=== PATIENT | male | born 1945 | race Caucasian/White ===

== ENCOUNTER 2018-12-08 11:55 | Emergency (ER) | payer OTHER ==
[2018-12-08 12:06] VITALS: BP 149/85; PULSE 79; TEMP 98.1; BMI 31.1
[2018-12-08] MEDS ORDERED: DIPHTH,PERTUSS(ACELL),TET 0.5 ML DISP.SYRIN IM ONE ×2 (12:33→12:37)
--- NOTE | 2018-12-08 12:37 | PDOC ---
History of Present Illness - General Chief Complaint: Laceration Stated Complaint: RT KNEE INJURY Time Seen by Provider: 12/08/18 12:12 History Source: Patient - History of Present Illness Timing/Duration: reports: just prior to arrival Location: reports: extremities Past History - Past Medical History Allergies/Adverse Reactions: Allergies Allergy/AdvReac Type Severity Reaction Status Date / Time No Known Allergies Allergy Verified 12/08/18 12:04 Home Medications: Ambulatory Orders Hydrochlorothiazide [Hctz -] 12.5 mg PO DAILY 12/08/18 levETIRAcetam [Keppra -] 1 gm PO AM 12/08/18 levETIRAcetam [Keppra -] 1,250 mg PO HS 12/08/18 - Psycho Social/Smoking Cessation Hx Smoking History: Never smoked Review of Systems - Review of Systems Integumentary: Yes: Other (knee laceration) *Physical Exam - Vital Signs Last Vital Signs Temp Pulse Resp BP Pulse Ox 98.1 F 79 18 149/85 99 12/08/18 12:05 12/08/18 12:05 12/08/18 12:05 12/08/18 12:05 12/08/18 12:05 - Physical Exam General Appearance: Yes: Appropriately Dressed. No: Apparent Distress HEENT: positive: Normal Voice Neck: positive: Supple Respiratory/Chest: negative: Respiratory Distress Integumentary: positive: Dry, Warm, Other (~1cm linear lac to anterior knee) Neurologic: positive: Fully Oriented, Alert, Normal Mood/Affect Procedures - Laceration/Wound Repair Right Knee Wound Length: to 2.5 cm Wound Explored: clean Wound's Depth, Shape: superficial Irrigated w/ Saline: Yes Betadine Prep: Yes Anesthesia: 1% Lidocaine Wound Repaired With: Sutures Suture Size/Type: 4:0 Number of Sutures: 4 Sterile Dressing Applied: Yes Medical Decision Making - Medical Decision Making 12/08/18 12:34 73-year-old male with no significant history, here with knee laceration after 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 No sensory changes. Needs tetanus see exam Knee lac No e/o complications -Suture repair -Tetanus updated -Dc w/ wound check as needed in 48 hrs Discharge - Discharge Information Problems reviewed: Yes Clinical Impression/Diagnosis: Laceration of knee Qualifiers: Encounter type: initial encounter Laterality: right Qualified Code(s): S81.011A - Laceration without foreign body, right knee, initial encounter Condition: Good Disposition: HOME - Follow up/Referral - Patient Discharge Instructions Patient Printed Discharge Instructions: DI for Laceration Repair Additional Instructions: Keep dressing in place for at least 24 hours after which one can be opened to air. You can gently cleaned wound with mild soap and water after 24 hours to prevent crusting over the suture knots. You can also apply an antibiotic ointment twice a day until sutures are removed. Return for redness, discharge or fever Sutures are removed in 8-10 days - Post Discharge Activity
== END 2018-12-08 12:43 | disposition home or self-care (01) ==
LOC: JERFT 11:55
PROC: 0HQKXZZ Repair Right Lower Leg Skin, External Approach (ICD-10-PCS; principal; 2018-12-08)
DX: S81.011A Laceration without foreign body, right knee, initial encounter (principal); W22.8XXA Striking against or struck by other objects, initial encounter; Y93.89 Activity, other specified; Y92.89 Other specified places as the place of occurrence of the external cause
CPT/HCPCS: 12001-25; 90715; 99281-25

== ENCOUNTER 2018-12-19 12:46 | Emergency (ER) | payer OTHER ==
[2018-12-19 12:51] VITALS: BP 121/79; PULSE 78; TEMP 98; BMI 29.8
--- NOTE | 2018-12-19 13:09 | PDOC ---
Suture Removal/Wound Check HPI - History of Present Illness Chief Complaint: Suture/Staple Removal(Here) Stated Complaint: STITCHES REMOVAL Time Seen by Provider: 12/19/18 13:00 History Source: Yes: Patient Exam Limitations: Yes: Clinical Condition Treated at: [facility] ED Date of Last ED visit: 12/12/18 - Previous ED Treatment Type of procedure performed on last visit: Yes: Laceration Repair Tetanus Immunization: Yes: Given at last ED visit Past History - Past Medical History Allergies/Adverse Reactions: Allergies Allergy/AdvReac Type Severity Reaction Status Date / Time No Known Allergies Allergy Verified 12/19/18 12:51 Home Medications: Ambulatory Orders Hydrochlorothiazide [Hctz -] 12.5 mg PO DAILY 12/08/18 levETIRAcetam [Keppra -] 1 gm PO AM 12/08/18 levETIRAcetam [Keppra -] 1,250 mg PO HS 12/08/18 COPD: No - Psycho Social/Smoking Cessation Hx Smoking History: Never smoked *Review of Systems - Review of Systems Able to Perform ROS?: Yes Constitutional: No: Chills, Fever, Malaise HEENTM: No: Symptoms Reported Respiratory: No: Symptoms reported Cardiac (ROS): No: Symptoms Reported ABD/GI: No: Symptoms Reported Musculoskeletal: Yes: See HPI. No: Symptoms Reported, Muscle Pain Integumentary: Yes: Symptoms Reported, See HPI, Other (laceration to anterior right knee with sutures). No: Change in Color, Erythema Neurological: No: Symptoms reported, Numbness, Paresthesia, Tingling All Other Systems: Reviewed and Negative *Physical Exam - Vital Signs Last Vital Signs Temp Pulse Resp BP Pulse Ox 98 F 78 18 121/79 98 12/19/18 12:48 12/19/18 12:48 12/19/18 12:48 12/19/18 12:48 12/19/18 12:48 - Physical Exam General Appearance: Yes: Nourished, Appropriately Dressed. No: Apparent Distress HEENT: positive: Normal ENT Inspection Neck: positive: Supple Respiratory/Chest: negative: Respiratory Distress, Accessory Muscle Use Musculoskeletal: positive: Normal Inspection Extremity: positive: Normal Capillary Refill Integumentary: positive: Normal Color, Other (well healed 2cm linear laceration to anterior patella of right knee. no erythema to wound sit. no drainage from wound. 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 Denies fevers, chills, redness to area drainage from wound site. Exam significant for 2 cm area of laceration to anterior right knee with [address] No erythema or wound dehiscence. No drainage from wound site or evidence of wound infection. 4 sutures removed with suture removal kit without complication. Bacitracin applied to wound. Patient stable for discharge with advised to continue bacitracin twice a day until wound is completely healed with PCP follow-up as needed Discharge - Discharge Information Problems reviewed: Yes Clinical Impression/Diagnosis: Visit for suture removal Laceration of knee Qualifiers: Encounter type: initial encounter Laterality: right Qualified Code(s): S81.011A - Laceration without foreign body, right knee, initial encounter Condition: Stable Disposition: HOME - Admission No - Follow up/Referral - Patient Discharge Instructions Patient Printed Discharge Instructions: DI for Suture Removal Additional Instructions: Continue applying bacitracin to wound twice a day until healed. Take Tylenol as needed for pain. Follow-up with primary care as needed - Post Discharge Activity
== END 2018-12-19 13:22 | disposition home or self-care (01) ==
LOC: JERFT 12:46
DX: Z48.817 Encounter for surgical aftercare following surgery on the skin and subcutaneous tissue (principal); Z48.02 Encounter for removal of sutures; S81.011D Laceration without foreign body, right knee, subsequent encounter; W27.8XXD Contact with other nonpowered hand tool, subsequent encounter
CPT/HCPCS: 99281-25